=== PATIENT | male | born 1985 | race Caucasian/White ===

== ENCOUNTER 2023-10-02 05:24 | Emergency (ER) | payer OTHER ==
[~2023-10-02] VITALS: Ht 170.2 cm; Wt 80.9 kg
[2023-10-02] MEDS ORDERED: ondansetron/PF 4mg/2ml inj IV ONE (05:40)
[2023-10-02] MEDS ORDERED: normal saline 1000ML IV soln IVB ONE ×3 (05:40→09:50)
[2023-10-02] MEDS ORDERED: acetaminophen 1,000mg/100ml IV 100 ML IV STA (05:58)
[2023-10-02] MEDS ORDERED: morphine 2 MG/ML inj. syringe IV ONE ×3 (06:30→09:05)
[2023-10-02] MEDS ORDERED: metoclopramide 5 mg/ml inj IV ONE (06:30)
[2023-10-02] MEDS ORDERED: diphenhydrAMINE 50 mg/ml inj IV ONE (06:30)
[2023-10-02 06:49] LABS: ALBUMIN 3.7 G/DL (3.4-5.0); ANION GAP 15 (8-16); BLOOD UREA NITROGEN 11 MG/DL (7-18); CALCIUM 9.5 MG/DL (8.5-10.1); CHLORIDE 102 MMOL/L (99-107); GLUCOSE 93 MG/DL (70-104); LIPASE 20 U/L (16-77); SODIUM 140 MMOL/L (135-145); eCRCL 83 ML/MIN; eGFR 74 ML/MIN
[2023-10-02 06:52] LABS: POTASSIUM 2.8 MMOL/L (3.5-5.1)
[2023-10-02] MEDS ORDERED: Potassium Cl inj 40 MEQ in normal saline 250ml IV soln 250 ML IV ONE (08:00)
[2023-10-02] MEDS ORDERED: Potassium Cl 40 MEQ in normal saline IV soln 270 ML IV ONE (08:05)
[2023-10-02] MEDS ORDERED: piperacillin/tazo 3.375gm/50ml 50 ML IV ONE (08:55)
[2023-10-02] MEDS ORDERED: proCHLORperazine 10 MG/2 ml inj IV ONE (09:30)
[2023-10-02 10:01] VITALS: BP 122/78; PULSE 78; RESP 18; O2SAT 99
[2023-10-02] MEDS ORDERED: AMOX-580 PO (10:16)
[2023-10-02] MEDS ORDERED: OXYC-145 PO (10:16)
[2023-10-02] MEDS ORDERED: POTA-207 PO (10:16)
[2023-10-02] MEDS ORDERED: ONDA4TAB12 PO (10:16)
== END 2023-10-02 10:23 | disposition home or self-care (01) ==
LOC: ER 05:25
DX: A08.39 Other viral enteritis (principal); K57.92 Diverticulitis of intestine, part unspecified, without perforation or abscess without bleeding; G89.29 Other chronic pain; M54.9 Dorsalgia, unspecified; Z79.899 Other long term (current) drug therapy
CPT/HCPCS: 36415; 74176; 80048; 83690; 84145; 96361; 96365; 96366; 96368; 96375; 96376; 99285; J0131; J0780; J1200; J2270; J2405; J2543; J2765; J3480; J7030; J7050